=== PATIENT | male | born 1980 | race Hispanic/Latino ===

== ENCOUNTER 2016-09-22 14:27 | Emergency (ER) | payer MEDICAID, OTHER ==
[2016-09-22 14:31] VITALS: BMI 23.1
--- NOTE | 2016-09-22 14:46 | ED PDOC ---
Arrival/HPI - General Historian: Patient <Elías Alvarez - Last Filed: 09/23/16 04:15> <Dillan Quezada - Last Filed: 09/23/16 06:57> - General Chief Complaint: Psychiatric Evaluation Time Seen by Provider: 09/22/16 14:35 - History of Present Illness Narrative History of Present Illness (Text): 09/22/16 14:50 36 y/o male, no pmh, nkda, biba with the mother and the father for violent behavior and change of behavior for the past 1 year. Pt. is in the ER, very violent, uncooperative, speaking non-relavant topics including "ada trump" "worship?", stated that do what you gotta do. I spoke to the mother and the father on the bedside, stated that the patient has unstable financial situation with the job, been careless and less concern, drinks heavily, on and off violent behavior with most severely today, threaten to harm the father, no suicidal ideation, no auditory or visual hallucination, no abdominal or pelvic pain, no night sweat, no weight loss, no other medical or psychological complaints. (Elías Alvarez) Past Medical History - Provider Review Nursing Documentation Reviewed: Yes - Infectious Disease Hx of Infectious Diseases: None - Tetanus Immunization Tetanus Immunization: Unknown - Cardiac Hx Cardiac Disorders: No - Pulmonary Hx Respiratory Disorders: Yes Hx Asthma: Yes - Neurological Hx Neurological Disorder: No - HEENT Hx HEENT Disorder: No - Renal Hx Renal Disorder: No - Endocrine/Metabolic Hx Endocrine Disorders: No - Hematological/Oncological Hx Blood Disorders: No - Integumentary Hx Dermatological Disorder: No - Musculoskeletal/Rheumatological Hx Musculoskeletal Disorders: No - Gastrointestinal Other/Comment: chronic abdominal pain (?pancreatitis) - Genitourinary/Gynecological Hx Genitourinary Disorders: No - Psychiatric Hx Psychophysiologic Disorder: No Hx Substance Use: Yes (marijuana) - Past Surgical History Past Surgical History: Non-Contributing - Surgical History Other/Comment: cyst - Anesthesia Hx Anesthesia: Yes Hx Anesthesia Reactions: No Hx Malignant Hyperthermia: No - Suicidal Assessment Feels Threatened In Home Enviroment: No <Elías Alvarez - Last Filed: 09/23/16 04:15> Family/Social History - Physician Review Nursing Documentation Reviewed: Yes Family/Social History: Unknown Family HX Smoking Status: Former Smoker Hx Alcohol Use: Yes (last use a few days ago) Hx Substance Use: Yes (marijuana) <Elías Alvarez - Last Filed: 09/23/16 04:15> Allergies/Home Meds <Elías Alvarez - Last Filed: 09/23/16 04:15> <PilarDillan - Last Filed: 09/23/16 06:57> Allergies/Adverse Reactions: Allergies No Known Allergies Allergy (Verified 10/28/14 17:40) Review of Systems - Review of Systems Systems not reviewed;Unavailable: Psychotic Constitutional: absent: Fatigue, Fevers Eyes: absent: Vision Changes ENT: absent: Hearing Changes Respiratory: absent: Cough Cardiovascular: absent: Chest Pain Gastrointestinal: absent: Abdominal Pain, Nausea, Vomiting Neurological: absent: Headache, Dizziness Psychiatric: Other (agitation) <Elías Alvarez - Last Filed: 09/23/16 04:15> Physical Exam Vital Signs Reviewed: Yes Temperature: Afebrile Blood Pressure: Hypertensive Pulse: Regular Respiratory Rate: Normal Appearance: Positive for: Well-Appearing, Non-Toxic, Comfortable Pain Distress: None Mental Status: Positive for: Agitated - Systems Exam Head: Present: Atraumatic, Normocephalic Pupils: Present: PERRL Extroacular Muscles: Present: EOMI Conjunctiva: Present: Normal Mouth: Present: Moist Mucous Membranes Neck: Present: Normal Range of Motion Respiratory/Chest: Present: Clear to Auscultation, Good Air Exchange. No: Respiratory Distress, Accessory Muscle Use Cardiovascular: Present: Regular Rate and Rhythm, Normal S1, S2. No: Murmurs Abdomen: Present: Normal Bowel Sounds. No: Tenderness, Distention, Peritoneal Signs Back: Present: Normal Inspection Upper Extremity: Present: Normal Inspection. No: Cyanosis, Edema Lower Extremity: Present: Normal Inspection. No: Edema Neurological: Present: GCS=15, Speech Normal, Motor Func Grossly Intact, Memory Normal Skin: Present: Warm, Dry, Normal Color. No: Rashes Psychiatric: Present: Alert, Oriented x 3, Normal Concentration, Agitated, Homicidal Ideation <Elías Alvarez - Last Filed: 09/23/16 04:15> Vital Signs Temp Pulse Resp BP Pulse Ox 09/23/16 05:28 87 18 140/79 95 09/22/16 21:20 70 18 138/78 100 09/22/16 19:00 88 19 99 09/22/16 18:28 90 20 150/88 99 09/22/16 16:00 78 16 148/90 99 09/22/16 14:27 98.3 F 90 18 151/96 H 98 Medical Decision Making - Lab Interpretations I have reviewed the lab results: Yes Interpretation: Abnormal lab values (K+3.5, +amphentamine, +cannabinoid) - RAD Interpretation Manager Desktop: Radiologist - EKG Interpretation Interpreted by ED Physician: Yes Type: 12 lead EKG Comparison: No previous EKG avail. <Elías Alvarez - Last Filed: 09/23/16 04:15> <Dillan Quezada - Last Filed: 09/23/16 06:57> ED Course and Treatment: 09/22/16 14:55 -labs/ua/uds -ekg -chest xray -will medically clear for the P[facility] -Pt. will definitely need admission. 09/22/16 15:32 -Chest x-ray show no active disease -NSR @ 80 BPM, no ST elevation or depression, no T wave inversion, no previous ekg available for comparison. -Labs are non-significant except potassium 3.5, potassium chloride 20meq po ordered. -UA show no UTI -UDS show +drug abuse 09/22/16 17:48 -Pt. is agitated, screaming, limited relief with the strain, causing harm to the doctor and the staff, ativan and haldol ordered. I will discontinue the restraint once the patient is calmed. 09/22/16 19:52 -Ativan and haldol was held because the patient is calmed. 09/22/16 21:51 -Pt. evaluated by the P[facility] vaishali, pt. is involuntary. SHAN tom contacted [facility] and [facility] will screen the patient. 09/23/16 00:50 -Restraints removed but the patient is anxious and agitated, ativan 2mg IM ordered. 09/23/16 01:02 -Pt. is agitated again, disrupting the ER, potential causing harm to the ER staff and other patients. -Restraints will be continued. 09/23/16 02:45 -Pt. is currently with the 3 points restraint now with one hand is free. -Pt. has been screened by the [facility] stated that he is accepted but pending for the availability of the psychiatric bed. 09/23/16 04:15 -Pt. accepted to the [facility] psychiatric unit but pending for the paper work. -Case sign out to the ER attending Dr. Quezada for the follow up and dispo the patient. (Elías Alvarez) 09/23/16 07:[address] Gomez, pt waiting for bed availability at [facility]. ( Dillan Quezada) - Lab Interpretations Lab Results: 09/22/16 15:00 09/22/16 15:00 Lab Results 09/22/16 20:01: Urine Color Dark yellow, Urine Appearance Clear, Urine pH 6.0, Ur Specific [place] >= 1.030, Urine Protein Trace H, Urine Glucose (UA) Negative , Urine Ketones 40 H, Urine Blood Negative, Urine Nitrate Negative, Urine Bilirubin Small H, Urine Urobilinogen 1.0 H, Ur Leukocyte Esterase Negative, Urine RBC 0 - 2, Urine WBC 0 - 2, Ur Epithelial Cells 1 - 3, Urine Bacteria Mod , Urine Other Mucus, Urine Opiates Screen Negative, Urine Methadone Screen Negative, Ur Barbiturates Screen Negative, Ur Phencyclidine Scrn Negative, Ur Amphetamines Screen Positive H, U Benzodiazepines Scrn Negative, U Oth Cocaine Metabols Negative, U Cannabinoids Screen Positive H 09/22/16 15:00: WBC 7.6, RBC 4.55, Hgb 15.8, Hct 44.4, MCV 97.6, MCH 34.7, MCHC 35.6, RDW 12.8, Plt Count 261, MPV 10.1, Gran % 68.1 H, Lymph % (Auto) 21.6 L, [place] % (Auto) 7.4 H, Eos % (Auto) 1.8, Baso % (Auto) 1.1, Gran # 5.16, Lymph # 1.6, [place] # 0.6, Eos # 0.1, Baso # 0.08, Sodium 141, Potassium 3.5 L, Chloride 101, Carbon Dioxide 25, Anion Gap 19, BUN 14, Creatinine 1.0, Est GFR ( Amer) > 60, Est GFR (Non-Af Amer) > 60, Random Glucose 101, Calcium 9.7, Total Bilirubin 1.3, AST 23, ALT 29, Alkaline Phosphatase 57, Total Protein 8.3, Albumin 4.8, Globulin 3.5, Albumin/Globulin Ratio 1.4, Acetaminophen < 10.0 L, Alcohol, Quantitative < 10 - RAD Interpretation Radiology Orders: 09/22/16 14:36 CHEST PORTABLE [RAD] Stat No active disease (Elías Alvarez) - EKG Interpretation EKG Interpretation (Text): 09/22/16 15:36 NSR @ 80 BPM, no ST elevation or depression, no T wave inversion, no previous ekg available for comparison. (Elías Alvarez) - Medication Orders Current Medication Orders: Discontinued Medications Lorazepam (Ativan) 2 mg IM ONCE ONE PRN Reason: Protocol Stop: 09/23/16 00:50 Last Admin: 09/23/16 01:02 Dose: 2 MG Behavioural Document 09/23/16 01:02 SB (Rec: 09/23/16 01:02 [place] [id number]) Maintenance Maintenance Dose No Nonmedicinal Nonmedicinal Interventions Redirect Therapeutic Communication Behavior Behavior for Medication: Anxiety IM Administration Charges Document 09/23/16 01:02 SB (Rec: 09/23/16 01:02 [place] [id number]) Injection Site MAR Injection Site Left Deltoid Charges for Administration # of IM Administrations 1 Potassium Chloride (K-Dur 20 Meq Er Tab) 20 meq PO ONCE ONE Stop: 09/22/16 16:09 Last Admin: 09/22/16 16:57 Dose: 20 MEQ - PA / HEALTH WORKER / Resident Statement LESLY has reviewed & agrees with the documentation as recorded. <Elías Alvarez - Last Filed: 09/23/16 04:15> - PA / HEALTH WORKER / Resident Statement LESLY has reviewed & agrees with the documentation as recorded. LESLY has examined the patient and agrees with the treatment plan. <Dillan Quezada - Last Filed: 09/23/16 06:57> Disposition/Present on Arrival - Present on Arrival Any Indicators Present on Arrival: No History of DVT/PE: No History of Uncontrolled Diabetes: No Urinary Catheter: No History of Decub. Ulcer: No History Surgical Site Infection Following: None - Disposition Disposition Time: 14:55 Patient Plan: Transfer To ([facility] psychiatric unit) <Elías Alvarez - Last Filed: 09/23/16 04:15> - Present on Arrival Any Indicators Present on Arrival: No - Disposition Have Diagnosis and Disposition been Completed?: No Disposition Time: 07:00 <Dillan Quezada - Last Filed: 09/23/16 06:57> - Disposition Diagnosis: Drug abuse, Psychotic disorder Patient Problems: Current Active Problems Problem Status Diagnosed Drug abuse Acute Psychotic disorder Acute Condition: GOOD Referrals: Esther Chavez, [Primary Care Provider] - Follow up with primary
[2016-09-22 15:22] LABS: ADD MANUAL DIFF? NO
[2016-09-22 15:28] LABS: BASO # 0.08 K/mm3 (0.0-2.0); BASO % 1.1 % (0.0-3.0); EOS # 0.1 (0.0-0.7); EOS % 1.8 % (1.5-5.0); GRAN # 5.16 (1.4-6.5); GRAN % 68.1 % (50.0-68.0); HEMATOCRIT 44.4 % (42.0-52.0); LYMPH # 1.6 (1.2-3.4); LYMPH % 21.6 % (22.0-35.0); MEAN CELL VOLUME 97.6 fL (80.0-105.0); MEAN CORPUSCULAR HEMOGLOBIN 34.7 pg (25.0-35.0); MEAN CORPUSCULAR HGB CONC 35.6 g/dl (31.0-37.0); MEAN PLATELET VOLUME 10.1 fl (7.0-11.0); MONO # 0.6 (0.1-0.6); MONO % 7.4 % (1.0-6.0); PLATELET COUNT 261 10^3/uL (120.0-450.0); RED CELL DISTRIBUTION WIDTH 12.8 % (11.5-14.5); WHITE BLOOD COUNT 7.6 10^3/ul (4.5-11.0)
--- NOTE | 2016-09-22 15:28 | RAD ---
HISTORY: medical clearance COMPARISON: 10/28/2014 FINDINGS: LUNGS: No active pulmonary disease. PLEURA: No significant pleural effusion identified, no pneumothorax apparent. CARDIOVASCULAR: Normal. OSSEOUS STRUCTURES: No significant abnormalities. VISUALIZED UPPER ABDOMEN: Normal. OTHER FINDINGS: None. IMPRESSION: No active disease.
[2016-09-22 15:46] LABS: ALB/GLOB RATIO 1.4 (1.1-1.8); ALKALINE PHOSPHATASE 57 U/L (38-133); ALT/SGPT 29 U/L (7-56); AST/SGOT 23 U/L (15-59); BILIRUBIN,TOTAL 1.3 mg/dL (0.2-1.3); BLOOD UREA NITROGEN 14 mg/dL (7-21); CALCIUM 9.7 mg/dL (8.4-10.5); CARBON DIOXIDE 25 mmol/L (21-33); CHLORIDE 101 mmol/L (98-107); GFR AFRICAN-AMERICAN > 60; GLUCOSE,RANDOM 101 mg/dL (70-110); POTASSIUM 3.5 mmol/L (3.6-5.0); SODIUM 141 mmol/L (132-148); TOTAL PROTEIN 8.3 g/dL (5.8-8.3)
[2016-09-22] MEDS ORDERED: Potassium Chloride 20 mEq ER Tab PO ONE (16:08)
[2016-09-22 20:28] LABS: URINE BILIRUBIN SMALL (NEGATIVE); URINE BLOOD NEGATIVE (NEGATIVE); URINE GLUCOSE (UA) NEGATIVE (NEGATIVE); URINE KETONE 40 mg/dL (NEGATIVE); URINE LEUKOCYTE ESTERASE NEGATIVE Leu/uL (NEGATIVE); URINE PROTEIN TRACE mg/dL (<30 mg/dL)
[2016-09-22 20:40] LABS: URINE APPEARANCE CLEAR (CLEAR); URINE COLOR DARK YELLOW (YELLOW)
[2016-09-22 20:53] LABS: URINE BACTERIA MOD (NEG); URINE RBC 0 - 2 /hpf (0-2); URINE WBC 0 - 2 /hpf (0-6)
--- NOTE | 2016-09-23 07:07 | ED PDOC ---
Physical Exam Vital Signs Temp Pulse Resp BP Pulse Ox 09/23/16 07:15 98 F 78 18 135/89 99 09/23/16 06:57 85 18 147/85 100 09/23/16 05:28 87 18 140/79 95 09/22/16 21:20 70 18 138/78 100 09/22/16 19:00 88 19 99 09/22/16 18:28 90 20 150/88 99 09/22/16 16:00 78 16 148/90 99 09/22/16 14:27 98.3 F 90 18 151/96 H 98 Medical Decision Making ED Course and Treatment: 09/23/16 07:00 Patient signed out to me by Dr. Quezada. Patient was medically cleared prior to my arrival, accepted by [facility], pending bed availability. 09/23/16 13:48 Patient has been resting comfortably. Bed now available at [facility]. Nurse giving report - Lab Interpretations Lab Results: 09/22/16 15:00 09/22/16 15:00 Lab Results 09/22/16 20:01: Urine Color Dark yellow, Urine Appearance Clear, Urine pH 6.0, Ur Specific [place] >= 1.030, Urine Protein Trace H, Urine Glucose (UA) Negative , Urine Ketones 40 H, Urine Blood Negative, Urine Nitrate Negative, Urine Bilirubin Small H, Urine Urobilinogen 1.0 H, Ur Leukocyte Esterase Negative, Urine RBC 0 - 2, Urine WBC 0 - 2, Ur Epithelial Cells 1 - 3, Urine Bacteria Mod , Urine Other Mucus, Urine Opiates Screen Negative, Urine Methadone Screen Negative, Ur Barbiturates Screen Negative, Ur Phencyclidine Scrn Negative, Ur Amphetamines Screen Positive H, U Benzodiazepines Scrn Negative, U Oth Cocaine Metabols Negative, U Cannabinoids Screen Positive H 09/22/16 15:00: WBC 7.6, RBC 4.55, Hgb 15.8, Hct 44.4, MCV 97.6, MCH 34.7, MCHC 35.6, RDW 12.8, Plt Count 261, MPV 10.1, Gran % 68.1 H, Lymph % (Auto) 21.6 L, [place] % (Auto) 7.4 H, Eos % (Auto) 1.8, Baso % (Auto) 1.1, Gran # 5.16, Lymph # 1.6, [place] # 0.6, Eos # 0.1, Baso # 0.08, Sodium 141, Potassium 3.5 L, Chloride 101, Carbon Dioxide 25, Anion Gap 19, BUN 14, Creatinine 1.0, Est GFR ( Amer) > 60, Est GFR (Non-Af Amer) > 60, Random Glucose 101, Calcium 9.7, Total Bilirubin 1.3, AST 23, ALT 29, Alkaline Phosphatase 57, Total Protein 8.3, Albumin 4.8, Globulin 3.5, Albumin/Globulin Ratio 1.4, Acetaminophen < 10.0 L, Alcohol, Quantitative < 10 - RAD Interpretation Radiology Orders: 09/22/16 14:36 CHEST PORTABLE [RAD] Stat - Medication Orders Current Medication Orders: Lorazepam (Ativan) 2 mg IM Q6H PRN; Protocol PRN Reason: Agitation Ziprasidone (Geodon Inj) 20 mg IM Q6H PRN; Protocol PRN Reason: severe agitation Discontinued Medications Lorazepam (Ativan) 2 mg IM ONCE ONE PRN Reason: Protocol Stop: 09/23/16 00:50 Last Admin: 09/23/16 01:02 Dose: 2 MG Behavioural Document 09/23/16 01:02 (Rec: 09/23/16 01:02 [place] [id number]) Maintenance Maintenance Dose No Nonmedicinal Nonmedicinal Interventions Redirect Therapeutic Communication Behavior Behavior for Medication: Anxiety IM Administration Charges Document 09/23/16 01:02 SB (Rec: 09/23/16 01:02 [place] [id number]) Injection Site MAR Injection Site Left Deltoid Charges for Administration # of IM Administrations 1 Potassium Chloride (K-Dur 20 Meq Er Tab) 20 meq PO ONCE ONE Stop: 09/22/16 16:09 Last Admin: 09/22/16 16:57 Dose: 20 MEQ Disposition/Present on Arrival - Present on Arrival Any Indicators Present on Arrival: No History of DVT/PE: No History of Uncontrolled Diabetes: No Urinary Catheter: No History of Decub. Ulcer: No History Surgical Site Infection Following: None - Disposition Have Diagnosis and Disposition been Completed?: Yes Diagnosis: Drug abuse, Psychotic disorder Disposition: HOSPITALIZED Disposition Time: 07:00 Patient Plan: Transfer To ([facility]) Patient Problems: Current Active Problems Problem Status Diagnosed Drug abuse Acute Psychotic disorder Acute Condition: GOOD Referrals: [facility], [Non-Staff] - Follow up with primary
[2016-09-23 09:35] VITALS: O2SAT 99
--- NOTE | 2016-09-23 13:53 | CON ---
DATE: 09/23/2016 HISTORY OF PRESENT ILLNESS: Shortly, the patient is a 36-year-old male with no known previ ous psychiatric history. The patient was brought in for evaluation of possible homicidal ideation. The patient was threatening to harm his father. In the Emergency Room, patient was acting bizarre an d paranoid. Also, patient was switching subjects from [place] to [employer]. The patient was screened by [facility], was accepted, and at present moment patient is waiting for a bed to be available. This writer producer tried to check his previous records. The patient does not have his tory of being admitted into the psychiatric inpatient unit in the [facility] system. The patient was evaluated this afternoon. The patient presented to be alert, guarded, paranoid, expansive affect, we nt from giggling to angry demeanor. The patient requested to give a call to his family because he wa s concerned about his mother. This writer producer will allow patient to give a call. VITAL SIGNS: Reviewed and stable. MEDICATIONS: Reviewed. The patient is on Ativan 2 mg, potassium chloride. LABORATORY DATA: Reviewed, amphetamine positive and cannabis positive. Most likely the patient was using alcohol as well as per report. Notes from the medical team reviewed. Discussed with the [facility] staff as well as the ER physician. MENTAL STATUS EXAMINATION: The patient presented to be alert and knows that he is in the hospital, k nows about his transfer to [facility]. The patient had intermittent eye contact. Sp eech was underproductive. Mood described as "I'm okay." Affect was expansive as this writer producer describ es, mood incongruent. Thought process is disorganized. Thought content: The patient denied thought s of harming himself or others, but earlier, patient was verbalizing thoughts of harming his father. The patient presented to be psychotic. IMPRESSION: Psychosis, not otherwise specified, rule out substance induced psychosis, rule out schiz ophrenia spectrum disorder. The patient's urine drug screen was positive for cannabis, also for amp hetamines, alcohol as per history from the medical staff. PLAN: The patient was accepted by [facility]. The patient is waiting for bed to be available. This writer producer would recommend as needed medications. Collateral information from the famil y. P.r.n. orders will be placed in the computer. Thank you very much for letting me participate in the care of your patient. Venecia Torres MD cc: [phone] TT: 09/23/2016 13:52:44 Confirmation # [id number] Dictation # [id number]
[2016-09-23 14:00] VITALS: RESP 18
[2016-09-23 15:24] VITALS: BP 132/92; PULSE 70; TEMP 98.3
--- NOTE | 2016-09-23 18:07 | CARD ---
APPROVED REPORT EKG Measurement Heart [id number] <Conclusion> Normal sinus rhythm Normal ECG
== END 2016-09-23 15:23 | disposition short-term general hospital (02) ==
LOC: ED 14:27
DX: F29 Unspecified psychosis not due to a substance or known physiological condition (principal); F19.10 Other psychoactive substance abuse, uncomplicated
CPT/HCPCS: 71010; 80053; 81001; 85025; 90791; 93005; 96372; 99285; G0480; J2060